=== PATIENT | male | born 1985 | race Caucasian/White ===

== ENCOUNTER 2017-06-28 20:50 | Emergency (ER) | payer BC, OTHER ==
[2017-06-28] MEDS ORDERED: KETOROLAC TROMETHAMINE 60 MG/2 ML VIAL IM ONE (21:01)
--- NOTE | 2017-06-28 21:02 | PDOC ---
Rapid Medical Evaluation Time Seen by Provider: 06/28/17 20:59 Medical Evaluation: 06/28/17 20:59 I have performed a brief in-person evaluation of this patient. The patient presents with a chief complaint of: smashed finger with sledgehammer 1:30pm Pertinent physical exam findings: swollen L 4th finger I have ordered the following: x-ray, toradol The patient will proceed to fast track for further evaluation.
[2017-06-28 21:04] VITALS: BP 130/74; PULSE 66; TEMP 97.8; BMI 29.8
--- NOTE | 2017-06-28 22:17 | PDOC ---
History of Present Illness - General Chief Complaint: Injury Stated Complaint: INJURY Time Seen by Provider: 06/28/17 20:59 Past History - Past Medical History Allergies/Adverse Reactions: Allergies Allergy/AdvReac Type Severity Reaction Status Date / Time No Known Allergies Allergy Verified 06/28/17 22:06 Home Medications: Ambulatory Orders Ibuprofen 800 mg PO TID #30 tablet 06/28/17 Oxycodone HCl/Acetaminophen [Percocet 5-325 mg Tablet] 1 tab PO Q6H PRN #10 tablet MDD 4 06/28/17 COPD: No - Suicide/Smoking/Psychosocial Hx Smoking History: Current every day smoker Have you smoked in the past 12 months: Yes Number of Cigarettes Smoked Daily: 10 Information on smoking cessation initiated: No Hx Alcohol Use: No Drug/Substance Use Hx: No Substance Use Type: None *Physical Exam - Vital Signs Last Vital Signs Temp Pulse Resp BP Pulse Ox 97.8 F 66 18 130/74 97 06/28/17 20:59 06/28/17 20:59 06/28/17 20:59 06/28/17 20:59 06/28/17 20:59 *DC/Admit/Observation/Transfer Diagnosis at time of Disposition: Fracture, finger Qualifiers: Encounter type: initial encounter Finger: ring finger Fracture type: closed Phalanx: distal Fracture alignment: displaced Laterality: left Qualified Code(s) : S62.635A - Displaced fracture of distal phalanx of left ring finger, initial encounter for closed fracture - Discharge Dispostion Disposition: HOME Condition at time of disposition: Good Admit: No - Referrals Referrals: Madi Alexis MD [Staff Physician] - Spike Lelsie MD [Staff Physician] - - Patient Instructions Printed Discharge Instructions: DI for Finger Fracture Additional Instructions: You broke your L 4th finger. Please keep the 4th finger roverto taped to the 3rd finger until you can see orthopedics. Ice the finger for 20 minute intervals 5 times a day. Take ibuprofen 800mg 3 times a day, not to exceed 3,000mg a day. You may take percocet for break through pain every [address] needed[address] not drive after taking the medication as it may make you sleepy. Follow up with ortho either or Monday. Return to the ED if you have worsening pain, numbness and tingling, or any changes in your symptoms. - Post Discharge Activity Forms/Work/School Notes: Back to Work
== END 2017-06-28 22:33 | disposition home or self-care (01) ==
LOC: JERFT 20:50
PROC: 2W3KXYZ Immobilization of Left Finger using Other Device (ICD-10-PCS; principal; 2017-06-28)
DX: S62.635A Displaced fracture of distal phalanx of left ring finger, initial encounter for closed fracture (principal); X58.XXXA Exposure to other specified factors, initial encounter; Y93.89 Activity, other specified; Y92.9 Unspecified place or not applicable; F17.210 Nicotine dependence, cigarettes, uncomplicated
CPT/HCPCS: 73140-TC-LT; 99281-25